=== PATIENT | female | born 1955 | race Caucasian/White ===

== ENCOUNTER 2024-01-19 16:59 | Emergency (ER) | payer MEDICARE, OTHER, SELFPAY ==
[2024-01-19 17:07] VITALS: BP 153/86
[2024-01-19 17:37] LABS: % Basophils 0.2 % (0-2); % Immature Granulocytes 0.9 % (0-0.5); % Lymphocytes 7.2 % (20.5-51.1); % Monocytes 4.9 % (1.7-9.3); % Neutrophils 86.8 % (42.2-75.2); Absolute Immature Granulocytes 0.1 10^3/uL (0-0.05); Absolute Lymphocytes 0.9 10^3/uL (1.2-3.4); Absolute Monocytes 0.6 10^3/uL (0.1-0.6); Hematocrit 40.9 % (37.0-47.0); Hemoglobin 13.5 g/dL (12.0-16.0); Mean Corpuscular Hgb 29.2 pg (27.0-31.0); Mean Corpuscular Volume 88.3 fL (81.0-99.0); Nucleated Red Blood Cells % 0 %; Platelet Count 352 10^3/uL (130-400); Red Blood Cell Count 4.63 10^6/uL (4.20-5.40); Red Cell Dist. Width 15.7 % (11.5-14.5); White Blood Cell Count 12.7 10^3/uL (4.8-10.8)
[2024-01-19 17:44] LABS: ALT (SGPT) 19 U/L (0-35); AST (SGOT) 24 U/L (14-36); Albumin 4.4 g/dl (3.5-5.0); Alkaline Phosphatase 120 U/L (38-126); Blood Urea Nitrogen 26 mg/dl (7-17); Carbon Dioxide 24 mmol/L (22-30); Chloride 104 mmol/L (98-107); Glucose 117 mg/dl (70-99); Potassium 4.8 mmol/L (3.5-5.1); Sodium 137 mmol/L (135-145); Total Bilirubin 0.5 mg/dl (0.2-1.3); Total Protein 7.2 g/dl (6.3-8.2); eGFR > 60.00
[2024-01-19 17:47] LABS: APTT 24.8 Sec (23.4-35.0)
[2024-01-19 17:55] LABS: NT-proBNP 476 pg/ml; Troponin I < 0.012 ng/ml
[2024-01-19 19:38] VITALS: BP 148/56
[2024-01-19 19:39] VITALS: BMI 32.2
[2024-01-19 20:00] VITALS: BP 142/46
--- NOTE | 2024-01-19 20:30 | ED.GENMED ---
History of Present Illness
General
Chief Complaint: Breathing Problem
Source: patient
Exam Limitations: none
Time Seen by Provider: 01/19/24 19:05
Travel History
Have you had any contact with someone who has COVID-19?: No
Do you have any symptoms of coronavirus? Fever > 100 degrees, chills, cough, shortness of breath, sore throat, loss of taste or smell, muscle aches, or headache?: No
History of Present Illness
History of Present Illness:
68-year-old female ongoing shortness of breath. Has been an issue for a long time. Not responding to steroids. With discussion with her primary hiv counselor at [facility], they stated she needed to be evaluated for pulmonary emboli. She is
currently on 30 mg of prednisone. No pleuritic pain no fever no sputum.
Past History
Past History
ED Past Medical History: COPD, HTN and Other (Sleep apnea)
ED Past Surgical History: and Orthopedic (Bilateral total knee replacement)
Social History
Tobacco: Former smoker
Alcohol: None
Drug: None
Personal:
Living: with family
Review of Systems
Review of Systems
All Other Systems: Not applicable
Constitutional: Denies fever
Cardiac: Reports no symptoms
ABD/GI: Reports no symptoms
Phy Exam
Physical Exam
Physical Exam:
GENERAL: Alert and oriented in no apparent distress
EYE: Orbits normal.
NECK: Supple
CARDIAC: Regular rate and rhythm without any obvious murmurs.
LUNGS: Very minimal tachypnea with talking. No distress. Some decreased breath sounds diffusely with a few dry bibasilar crackles. No wheezing or rhonchi
ABDOMEN: Soft, without focal tenderness or distention
NEUROLOGICAL: Alert and oriented , grossly non-focal
SKIN: Warm and dry, no rash or lesion, no discoloration, skin intact.
MUSCULOSKELETAL: No edema,no deformity.Good color
PSYCH: Normal and appropriate interaction.
Scores
Heart Failure Risk
Heart Failure Risk Score: Not Applicable
Course
Orders/Labs/Results
Orders:
Orders
01/19/24 17:10
ECG [Electrocardiogram (*1)] Urgent
Reason for Study: Shortness of Breath
EKG- Treatment ONCE
01/19/24 17:23
Complete Blood Count/With Diff Urgent
Comprehensive Metabolic Panel Urgent
NT-proBNP Urgent
PTT Urgent
Troponin I Urgent
01/19/24 19:17
IV Insert/Care/Rem.- Treatment PRN
01/19/24 19:18
CT Chest Pe Study Urgent
Comment:
Reason For Exam: Short of breath
01/19/24 21:38
Dexamethasone Sod Phosphate [Decadron] 8 mg IV NOW STA
Ipratropium/Albuterol Sulfate [Duoneb] 3 ml INH R NOW STA
Abnormal Lab Results
01/19/24
17:23
WBC 12.7 H 10^3/uL
(4.8-10.8)
RDW 15.7 H %
(11.5-14.5)
Abs Immat Gran (auto) 0.1 H 10^3/uL
(0-0.05)
Absolute Neuts (auto) 11.0 H 10^3/uL
(1.4-6.5)
Absolute Lymphs (auto) 0.9 L 10^3/uL
(1.2-3.4)
Immature Gran % 0.9 H %
(0-0.5)
Neutrophils % 86.8 H %
(42.2-75.2)
Lymphocytes % 7.2 L %
(20.5-51.1)
BUN 26 H mg/dl
(7-17)
Glucose 117 H mg/dl
(70-99)
01/19/24 17:23
01/19/24 17:23
Vital Signs
Initial and Last Documented VS:
Initial Vital Signs
Temp Pulse Resp BP Pulse Ox
98.2 F 99 20 153/86 92
01/19/24 17:07 01/19/24 17:07 01/19/24 17:07 01/19/24 17:07 01/19/24 17:07
Last Documented Vital Signs
Temp Pulse Resp BP Pulse Ox
98.2 F 99 20 142/46 92
01/19/24 17:07 01/19/24 17:07 01/19/24 17:07 01/19/24 20:00 01/19/24 20:00
MDM/Problems Addressed
Differential Diagnosis Includes:
Relatively low clinical suspicion for pulmonary emboli however very reasonable diagnosis to entertain. CT scan is ordered. If positive of course will be addressed. If negative will discuss approach with patient.
*EKG
Interpreted by ED Provider?: Yes
Interpretation: abnormal
Comparison EKG: no changes
Heart Rate: 92
Rate: normal
Rhythm: sinus
[place]: right axis deviation
Interval: normal interval
QRS Pattern: normal QRS
Ischemia: no ischemia
*Critical Care Note
Total Time (30-74mins, 75-104mins- exclusive of procedures): Not Applicable
Data Reviewed
Review of Other/Old Records Reveals: Labs, Records, Radiology Studies and Testing
Update Note
Update Note:
Patient is stable and nontoxic. No indication for admission. We will restart steroids at a higher dose. Have arranged close pulmonary follow-up. Copy of CT report given to patient
ED Attending Note
-
Portions of this chart may have been created with voice recognition software.� Occasional wrong word or��sound alike� substitutions may have occurred due to the inherent limitations of voice recognition software.
Discharge Plan
Departure
Patient Disposition: Home (Routine Discharge)
Date of Disposition: 01/19/24
Time of Disposition: 22:16
Patient with high blood pressure during this ER visit?: Yes
Discharge Problem:
Dyspnea/COPD
Instructions: Shortness of Breath (Dyspnea) (DC)
Prescriptions:
New
prednisone 10 mg tablet
10 mg PO DAILY Qty: 45 0RF
Rx Instructions:
5 tablets daily x 3 days.
Then 1 less tablet every third day until gone
No Action
aspirin 325 MG tablet
325 mg PO DAILY
amlodipine 10 MG tablet
10 mg PO DAILY
lorazepam 1 MG tablet
0.5 mg PO BIDPRN PRN (Reason: anxiety)
albuterol sulfate 2.5 MG/3 ML solution for nebulization
2.5 mg inhalation R QIDPRN PRN (Reason: SOB) Qty: 1 0RF
ipratropium bromide 0.5 MG/2.5 ML solution
0.5 mg inhalation R QIDPRN PRN (Reason: SOB) Qty: 1 0RF
sertraline 50 MG tablet
50 mg PO DAILY
qrewamxlgkn-bgehpkpdq-fmjddods [Trelegy Ellipta] 1 EACH blister with device
1 puff IH R DAILY
nystatin 5 ML suspension
5 ml PO QID Qty: 300 0RF
miconazole nitrate [Miconazorb AF] 1 APPLIC powder
1 applic topical BID Qty: 1 0RF
Rx Instructions:
apply to affected area
hydrocodone-homatropine [Hycodan (with homatropine)] 5 ML syrup
5 ml PO Q4HPRN PRN (Reason: cough) Qty: 200 0RF
guaifenesin [Mucus Relief ER] 600 MG tablet extended release 12hr
600 mg PO Q12 Qty: 30 0RF
prednisone 10 MG tablet
10 mg PO .TAPER Qty: 30 0RF
Rx Instructions:
Take 40mg daily x3days, 30mg daily x3days,
20mg daily x3days, 10mg daily x3days.
azithromycin 250 MG tablet
250 mg PO Q48H Qty: 30 0RF
promethazine-codeine 5 ML syrup
5 ml PO Q4HPRN PRN (Reason: cough) Qty: 200 0RF
Referrals:
Rashmi Figueredo, [Active] - Next open appointment
Halima Lr CRNP [Family Provider] -
Activity Restrictions/Additional Instructions:
You should get a call from the pulmonary group for close follow-up
Interventions
Interventions:
*Risk Screen - Suicide Last Done: 01/19/24 17:07
*General Assessment Last Done: 01/19/24 17:07
*Neglect/Abuse Screening Last Done: 01/19/24 17:07
ED- Fall Risk Assessment Last Done: 01/19/24 19:40
*ED COVID-19 Vaccine History Last Done: 01/19/24 19:40
ED- Cardiac Assessment Last Done: 01/19/24 19:40
ED- Pulmonary Assessment Last Done: 01/19/24 19:40
Discharge Date and Time
Print Language: CZECH
[2024-01-19] MEDS: DUONEB 3 ML INH (22:31)
[2024-01-19] MEDS: DECADRON 8 MG IV (22:33)
== END 2024-01-19 22:42 | disposition home or self-care (01) ==
LOC: EMR 16:59
PROVIDERS: EMERGENCY PHYSICIAN Emergency Medicine; FAMILY PHYSICIAN Nurse Practitioner Family
DX: R06.09 Other forms of dyspnea (principal); J44.9 Chronic obstructive pulmonary disease, unspecified; I10 Essential (primary) hypertension; Z87.891 Personal history of nicotine dependence
CPT/HCPCS: 99285; 96374; 94640; 71275; 80053; 83880; 84484; 85025; 85730; 93005; Q9967

== ENCOUNTER → 2024-05-16 11:05 | Outpatient (REF) | payer MEDICARE, OTHER, SELFPAY | LOC: DHCBC/DCA 11:05 | PROVIDERS: ATTENDING PHYSICIAN Internal Medicine Cardiovascular Disease; FAMILY PHYSICIAN Nurse Practitioner Family | DX: R06.09 Other forms of dyspnea (principal); E78.5 Hyperlipidemia, unspecified | CPT/HCPCS: 78452; 93017; A9500; J2785 ==

== ENCOUNTER 2025-04-02 06:44 | Day surgery (SDC) | payer MEDICARE, OTHER, SELFPAY ==
[2025-04-02] VITALS (13 sets, daily range): BP systolic 108–167; BP diastolic 45–65; BMI 33.1
[2025-04-02] MEDS: NSS 234 ML IV (07:39)
--- NOTE | 2025-04-02 09:27 | ITS.CL.PN ---
[employer] - Procedure Note
Procedure
Procedure Note:
CARDIAC CATHETERIZATION REPORT
Date of Procedure: 04/02/25
Referring: Dr. Jaciel Brown MD
Indication: atypical chest pain
PROCEDURE(S)
1. right heart catheterization
2. left heart catheterization
3. coronary angiography
ACCESS
1. 6F right radial artery (closure: radial band)
2. 5F right antecubital vein (closure: manual hemostasis)
CATHETERS
1. 5F [place]
2. 6F JR4
3. 6F JL3.5
MODERATE SEDATION: 25 minutes of moderate sedation was utilized. An independent medical delivery technician was present to assist with and help manage the patient's level of consciousness and physiologic status.
HEMODYNAMIC DATA
LV 162/22 (EDP 27) mmHg
AO 161/74 (mean 110) mmHg
RA 20 mmHg
RV 44/18 (EDP 23) mmHg
PA 43/27 (mean 34) mmHg
PCWP 25 mmHg
SaO2 96.4%
SvO2 71.8%
Hb 14.7 g/dL
CO/CI 4.71/2.54 L/min/m2
SVR 1527 dsc*-5
PVR 1.9 [place] units
CORONARY ANGIOGRAPHY
Dominance: right
LM: Large, normal
LAD: Large vessel giving rise to a small D1 and moderate caliber D2. There are mild luminal irregularities only.
[place]amus: Moderate caliber vessel with no disease.
LCx: Large vessel giving rise to a moderate caliber branching OM1. There are mild luminal irregularities only.
RCA: Large vessel giving rise to a large RPDA and moderate caliber RPL branch. There is a 20-30% stenosis in the proximal vessel and otherwise trivial luminal irregularities only.
RADIATION: dose 2.5 mGy; DAP 186 Gy*cm2; fluoroscopy time 11.4 min
CONCLUSIONS
1. Moderately elevated biventricular filling pressures, moderate predominantly postcapillary pulmonary hypertension, and normal cardiac output
2. No aortic stenosis on hemodynamic pullback
3. Non-obstructive coronary artery disease in a right dominant system as described
RECOMMENDATIONS
1. Primary prevention of coronary artery disease
2. GDMT for HFpEF
3. Workup for non-cardiac etiologies of dyspnea on exertion
Copy to: Dr. Jaciel Brown MD (forming machine upkeep mechanic helper); Halima Lr NP (PCP)
Signed: Niles Harvey MD, PhD
[2025-04-02] MEDS: NSS 1000 IV (11:54)
== END 2025-04-02 12:00 | disposition home or self-care (01) ==
LOC: CATH 06:44
PROVIDERS: ATTENDING PHYSICIAN Student in an Organized Health Care Education/Training Program; FAMILY PHYSICIAN Nurse Practitioner Family; OTHER PHYSICIAN Internal Medicine Cardiovascular Disease
DX: I25.10 Atherosclerotic heart disease of native coronary artery without angina pectoris (principal); R07.89 Other chest pain; I27.20 Pulmonary hypertension, unspecified; R06.09 Other forms of dyspnea; I50.30 Unspecified diastolic (congestive) heart failure
CPT/HCPCS: 99152; 99153; 93460; C1894; Q9967